=== PATIENT | female | born 1990 | race Caucasian/White ===

== ENCOUNTER 2018-01-20 09:30 | Day surgery (SDC) | payer MEDICAID ==
[~2018-01-20] VITALS: Ht 162.6 cm; Wt 50.4 kg
[2018-01-20] MEDS ORDERED: LACTATED RINGERS 1,000 ML IV SCH (10:07)
[2018-01-20 10:08] VITALS: BP 137/96
[2018-01-20 10:08] LABS: HCG UR SG 1.019 (1.003-1.030)
[2018-01-20 10:18] LABS: AMPHETAMINE SCREEN, URINE Negative (Negative); BARBITURATE SCREEN, URINE Negative (Negative); BENZODIAZEPINE SCREEN, URINE Negative (Negative); CANNABINOID SCREEN, URINE Negative (Negative); COCAINE SCREEN, URINE Negative (Negative); METHADONE SCREEN, URINE Positive (Negative); OPIATE SCREEN, URINE Positive (Negative)
[2018-01-20] MEDS ORDERED: METH40TA3 PO (10:37)
[2018-01-20] MEDS ORDERED: OxyconTIN ER 10 MG TAB.ER PO ONE (11:00)
[2018-01-20] MEDS ORDERED: ACETAMINOPHEN 500 MG TABLET PO ONE (11:00)
[2018-01-20] MEDS ORDERED: GABAPENTIN 300 MG CAPSULE PO ONE (11:00)
[2018-01-20] MEDS ORDERED: MIDAZOLAM 1 MG/ML, 2ML ONE (11:12)
[2018-01-20] MEDS ORDERED: FENTANYL PF 250 MCG/5ML ONE (11:12)
[2018-01-20] MEDS ORDERED: ROCURONIUM 10MG/ML,5ML ONE (11:13)
[2018-01-20] MEDS ORDERED: PROPOFOL 10 MG/ML, 20ML ONE (11:14)
[2018-01-20] MEDS ORDERED: DEXAMETHASONE 4 MG/ML, 1ML ONE ×2 (11:14)
[2018-01-20] MEDS ORDERED: GLYCOPYRROLATE 0.4 MG/2 ML, 2ML ONE (11:14)
[2018-01-20] MEDS ORDERED: NEOSTIGMINE 1 MG/ML, 10ML ONE (11:14)
[2018-01-20] MEDS ORDERED: CEFAZOLIN 1,000 MG ONE ×2 (11:15)
[2018-01-20] MEDS ORDERED: WATER-INJECTION,STERILE 10 ML IV ONE (11:15)
[2018-01-20] MEDS ORDERED: EPINEPHRINE 1 MG/ML, 1ML ONE (12:17)
[2018-01-20] MEDS ORDERED: BUPIVACAINE/PF 0.25% ONE (12:17)
[2018-01-20] MEDS ORDERED: METHYLENE BLUE 10 MG/ML 10ML ONE (12:25)
[2018-01-20] MEDS ORDERED: FENTANYL PF 100 MCG/2ML IV PRN (12:30)
[2018-01-20] MEDS ORDERED: OXYcodone 5 MG/5 ML ORAL.SOL UDC PO PRN (12:30)
[2018-01-20] MEDS ORDERED: ACETAMINOPHEN 325 MG TABLET PO PRN (12:30)
[2018-01-20] MEDS ORDERED: PROMETHAZINE 25 MG SUPP PR PRN (12:30)
[2018-01-20] MEDS ORDERED: PROMETHAZINE 25 MG/ML, 1ML IV PRN (12:30)
[2018-01-20] MEDS ORDERED: hydrALAzine 20 MG/ML, 1ML IV PRN (12:30)
[2018-01-20] MEDS ORDERED: LABETALOL 5MG/ML, 20ML IV PRN (12:30)
[2018-01-20] MEDS ORDERED: PROMETHAZINE 12.5 MG SUPP PR PRN (12:30)
[2018-01-20] MEDS ORDERED: MORPHINE SULFATE 4 MG/ML, 1ML IVPush PRN (12:30)
[2018-01-20] MEDS ORDERED: MEPERIDINE/PF 25MG/0.5ML IVPush PRN (12:30)
[2018-01-20] MEDS ORDERED: ONDANSETRON ODT 8 MG PO PRN (12:30)
[2018-01-20] MEDS ORDERED: MEPERIDINE/PF 100 MG/ML ONE (13:32)
[2018-01-20] MEDS ORDERED: KETOROLAC 30 MG/1 ML ONE (13:44)
[2018-01-20] MEDS ORDERED: HYDROmorphone 2 MG/ML, 1ML ONE (14:18)
[2018-01-20] MEDS ORDERED: OXYcodone 5 MG/5 ML ORAL.SOL UDC ONE (14:18)
[2018-01-20] MEDS ORDERED: MEPERIDINE/PF 25MG/0.5ML ONE (14:18)
[2018-01-20] MEDS: HYDROmorphone 1 MG/ML, 1ML IV PRN ×2 (14:26→14:39)
== END 2018-01-20 16:20 ==
LOC: OUT 09:30
PROVIDERS: ATTEND Specialist
DX: N94.6 Dysmenorrhea, unspecified (principal); N80.3 Endometriosis of pelvic peritoneum
CPT/HCPCS: 58662; 80307; 81025; J0171; J0690; J1100; J1170; J1885; J2175; J2250; J2704; J2710; J3010; J3490; J7120; Q9968